=== PATIENT | male | born 1995 | race Caucasian/White ===

== ENCOUNTER 2016-08-08 11:43 | Emergency (ER) | payer OTHER ==
[~2016-08-08] VITALS: Ht 172.7 cm; Wt 75.0 kg
[2016-08-08 11:48] VITALS: TEMP 36.9; Ht 172.7 cm; Wt 75.0 kg
[2016-08-08] MEDS ORDERED: DiphenhydrAMINE HCL 50 MG/ML VIAL IV STA (12:09)
[2016-08-08] MEDS ORDERED: METHYLPREDNISOLONE 125 MG VIAL IV STA (12:09)
[2016-08-08] MEDS ORDERED: SODIUM CHLORIDE 0.9% 1000ML 1,000 ML IV STA (12:09)
[2016-08-08] MEDS ORDERED: FAMOTIDINE IV INJ 20 MG in DEXTROSE 5% 100ML 100 ML IV SCH (12:15)
[2016-08-08] MEDS ORDERED: DIPH1TAB PO (12:22)
[2016-08-08] MEDS ORDERED: PRED50TA PO (16:25)
[2016-08-08] MEDS ORDERED: EPP3/2 IM (16:25)
[2016-08-08 16:35] VITALS: BP 128/78; PULSE 94; O2SAT 98
--- NOTE | 2016-08-08 20:18 | EMERGENCY ROOM VISIT NOTE ---
History Report prepared by Gal: Chalino Heredia Under the Supervision of: Dr. Siva Lopez D.O. First contact with patient: 11:56 Chief Complaint: ALLERGIC REACTION Stated Complaint: ALLERGIC REACTION Nursing Triage Summary: Patient reports waking up to sore/full throat feeling, progressed to hives. Given bendaryl 50 mg PO at [facility], EMS gave patient 0.3 mg of EPI IM. Patient reports changing to [employer] recently, believes tihs is related. History of Present Illness The patient is a 21 year old male who presents to the Emergency Room with complaints of a persistent allergic reaction that started this morning. The patient has had an itchy rash that started this morning, as well as difficulty swallowing. The rash started on his abdomen. He is able to drink fluids. He went to [facility] where he was given an EpiPen at approximately 1130. The patient also had 50 mg Benadryl over the past 1.5 hours. The patient's rash is less itchy but is still present, and he is still having trouble swallowing. Patient denies headache, change in vision, fevers, cough, rhinorrhea, chest pain, nausea, vomiting, diarrhea, pain with urination, and melena. The patient attributes his reaction to a new laundry detergent that he started four days ago. He has worn clothing that wasn't washed with the detergent since then. He denies any recent travel or new medication use. He also denies having any new pets, eating new foods, or using new soaps. The patient has a history of eczema and asthma. Source of History: patient Onset: this morning Position: other (global) Quality: other (allergic reaction) Timing: other (persistent) Modifying Factors (Relieving): other (Benadryl) Associated Symptoms: No SOB, No chest pain, No cough, No diarrhea, No fevers , No headache, No melena, No nausea, No urinary symptoms, No vomiting Review of Systems See HPI for pertinent positives & negatives. A total of 10 systems reviewed and were otherwise negative. Past Medical & Surgical Medical Problems: (1) Asthma (2) Eczema Family History Patient reports no known family medical history. Social History Smoking Status: Never Smoker Occupation Status: [employer] student Current/Historical Medications Scheduled Epinephrine (Epipen 2-Abdoul), 1 PEN IM once Prednisone (Prednisone), 50 MG PO DAILY Scheduled PRN Diphenhydramine Hcl (Benadryl Allergy), 50 MG PO DIRECTED PRN for ALLERGIC REACTION Allergies Coded Allergies: No Known Allergies (Unverified , 08/08/16) Physical Exam Vital Signs Date Time Temp Pulse Resp B/P Pulse Ox O2 Delivery O2 Flow Rate FiO2 08/08/16 16:35 94 12 128/78 98 08/08/16 14:26 105 18 129/75 96 Room Air 08/08/16 13:12 97 16 133/97 08/08/16 11:48 99 Room Air 08/08/16 11:48 36.9 111 20 138/78 99 Room Air Physical Exam GENERAL: Sitting up in bed, alert, well appearing, well nourished, no distress, non-toxic EYE EXAM: normal conjunctiva. OROPHARYNX: no exudate, no erythema, lips, buccal mucosa, and tongue normal and mucous membranes are moist NECK: supple, no nuchal rigidity, no adenopathy, non-tender, no stridor. LUNGS: Clear to auscultation. Normal chest wall mechanics HEART: Tachycardic, no murmurs, S1 normal and S2 normal ABDOMEN: abdomen soft, non-tender, normo-active bowel sounds, no masses, no rebound or guarding. BACK: Back is symmetrical on inspection and there is no deformity, no midline tenderness, no CVA tenderness. SKIN: raised erythematous blanching lesions on the abdomen tracking up to the left axilla, no central clearing, no petechia, does not include any mucosal membranes, palms, soles, or extremities. UPPER EXTREMITIES: upper extremities are grossly normal. LOWER EXTREMITIES: No pitting edema. NEURO EXAM: Normal sensorium, cranial nerves II-XII grossly intact, normal speech, no gross weakness of arms, no gross weakness of legs. Gross sensation intact. Medical Decision & Procedures Medications Administered Medications (Trade) Dose Ordered Sig/Lucius Route Start Time Stop Time Status Last Admin Dose Admin Methylprednisolone Sodium Succinate 125 mg 125 mg NOW STAT IV 08/08/16 12:09 08/08/16 12:10 DC 08/08/16 12:22 125 MG Famotidine/ Dextrose (Pepcid IV Inj/ D5 100ml) 102 ml @ 200 mls/hr NOW IV 08/08/16 12:15 08/08/16 16:58 DC 08/08/16 12:34 200 MLS/HR Diphenhydramine HCl 25 mg 25 mg NOW STAT IV 08/08/16 12:09 08/08/16 12:10 DC 08/08/16 12:21 25 MG Sodium Chloride (Nss 1000ml) 1,000 ml @ 999 mls/hr Q1H1M STAT IV 08/08/16 12:09 08/08/16 13:09 DC 08/08/16 12:22 999 MLS/HR ED Course ED COURSE: Vital signs were reviewed and showed tachycardia. The patients medical record was reviewed The above diagnostic studies were performed and reviewed. ED treatments and interventions as stated above. 1200: The patient was evaluated in room C2a. A complete history and physical examination was performed. 1209: NSS 1000 ml @ 999 mls/hr, Benadryl 25 mg IV, Solu-Medrol 125 mg IV. 1215: Famotidine 20 mg / dextrose 102 ml @ 200 mls/hr. 1630: Upon reevaluation, the patient is feeling better.I discussed my findings with the patient and he understands and agrees with the treatment plan. Based on the patients age, coexisting illnesses, exam and lab findings the decision to treat as an outpatient was made. The patient remained stable while under my care. The patient appeared well at the time of discharge. Medical Decision Differential diagnosis: Etiologies such as allergic reaction, anaphylaxis, urticaria, Irvin-Fernando syndrome, toxic epidermal necrolysis, erythema multiforme, cellulitis, as well as others were entertained. Patient is a 21-year-old male who presents the ER with hives following receiving epinephrine IM. He presented to [facility] and receives IM epinephrine. He had previous intake and Benadryl. He notes that he woke up this morning and felt like swelling in his throat has slight trouble breathing. He then noticed rash on his abdomen which was worsening. He was transferred via ALS to the ER. Upon arrival I gave him Benadryl and steroids. After Benadryl his symptoms completely resolved. Patient has no other complaints at this time. Patient was observed for 4 hours following IM epinephrine. He was discharged with a dose of epinephrine at his baseline along with steroids. Uncertain of the true etiology of this reaction although he does believe is secondary to the detergent. I favor this is unlikely since this is used on Thursday and he had no symptoms still today. Discussed with Pt concerning signs and symptoms to watch out for. Pt was instructed to follow up with their PCP and discussed with the patient their option to return to the ED at anytime for persistent or worsening symptoms. The appropriate anticipatory guidance and out-patient management, including indications for return to the emergency department, were explained at length to the patient and understood. Impression Primary Impression: Allergic reaction Scribe Attestation The scribe's documentation has been prepared under my direction and personally reviewed by me in its entirety. I confirm that the note above accurately reflects all work, treatment, procedures, and medical decision making performed by me. Departure Information Dispostion Home / Self-Care Prescriptions Epinephrine (EPIPEN 2-ABDOUL) 0.3 Mg Inj 1 PEN IM once for trouble breathing, #1 Prov: Siva Lopez, DO 08/08/16 Prednisone (Prednisone) 50 Mg Tab 50 MG PO DAILY for 1 Day, #1 TAB Prov: Siva Lopez, 08/08/16 Forms HOME CARE DOCUMENTATION FORM, IMPORTANT VISIT INFORMATION Patient Instructions ED Allergic Reaction General Other, First Aid Allergic React, My [facility] Additional Instructions Please follow up with your primary care doctor or if you are a student [facility] services with in the next 24 hours. Any worsening of your symptoms, please return to the ED immediately. This includes trouble breathing , trouble swallowing, or any other concerning signs or symptoms from your stand point. If the rash returns please take 50 mg of Benadryl every 6 hours as needed. Please take one tablet prednisone tomorrow. Please use the EpiPen as needed if you ever have swelling of your airway/throat or trouble breathing. Problem Qualifiers Primary Impression: Allergic reaction Encounter type: initial encounter Qualified Codes: T78.40XA - Allergy, unspecified, initial encounter
== END 2016-08-08 16:38 | disposition home or self-care (01) ==
LOC: EDBD 11:43 → C.EDC 11:45
DX: T78.40XA Allergy, unspecified, initial encounter (principal); X58.XXXA Exposure to other specified factors, initial encounter; J45.909 Unspecified asthma, uncomplicated; L30.9 Dermatitis, unspecified

== ENCOUNTER → 2017-07-09 | Outpatient (CLI) | payer OTHER ==
[~2017-07-09] MED LIST: DIPH1TAB87 PO; EPP3/2 IM
--- NOTE | 2017-07-09 09:41 | DIAGNOSTIC IMAGING REPORT ---
L WRIST W/NAVICULAR MIN 3 VIEWS CLINICAL HISTORY: LEFT WRIST FX trauma. Pain. COMPARISON: None. DISCUSSION: Nondisplaced transverse fracture mid navicular. Bone alignment is anatomic. No evidence of dislocation. All remaining osseous structures are unremarkable. There is no evidence for soft tissue swelling. IMPRESSION: Nondisplaced transverse fracture mid navicular. The above report was generated using voice recognition software. It may contain grammatical, syntax or spelling errors. Electronically signed by: Remigio Leos M.D. 07/09/2017 9:39 AM Dictated Date/Time: 07/09/2017 9:38 AM
== END | disposition home or self-care (01) ==
LOC: C.RDSM 07:00
PROVIDERS: ATTEND Family Medicine
DX: M25.532 Pain in left wrist (principal)

== ENCOUNTER → 2017-09-01 | Outpatient (CLI) | payer OTHER ==
--- NOTE | 2017-09-01 13:11 | DIAGNOSTIC IMAGING REPORT ---
LEFT WRIST 4 VIEWS HISTORY: LEFT WRIST FRACTURE COMPARISON: None. FINDINGS: Slight progression of the bony bridging at the scaphoid waist fracture. This suggests interval healing. No acute fractures identified within the left wrist. Mild dorsal soft tissue swelling is again noted. Soft tissues are unremarkable. No radiopaque foreign bodies. IMPRESSION: Slight progression of the bony bridging at the nondisplaced scaphoid waist fracture consistent with interval healing. Electronically signed by: Eduardo López M.D. 09/01/2017 1:10 PM Dictated Date/Time: 09/01/2017 1:03 PM
== END | disposition home or self-care (01) ==
LOC: C.RDSM 14:43
PROVIDERS: ATTEND Family Medicine
DX: M25.532 Pain in left wrist (principal)

== ENCOUNTER 2017-10-15 15:56 | Emergency (ER) | payer OTHER ==
[~2017-10-15] VITALS: Ht 172.7 cm; Wt 69.4 kg
[2017-10-15 16:05] VITALS: TEMP 36.8; Ht 172.7 cm; Wt 69.4 kg
[2017-10-15 17:34] LABS: BASO % 0.1 %; BASO ABS # 0.01 K/uL (0-0.2); EOS % 0.3 %; EOS ABS # 0.03 K/uL (0-0.5); HEMATOCRIT 45.7 % (42-52); IG# 0.01 K/uL (0.00-0.02); LYMPH % 21.4 %; LYMPH ABS # 1.99 K/uL (1.2-3.4); MEAN CELL VOLUME 86.4 fL (80-100); MEAN CORPUSCULAR HEMOGLOBIN 32.1 pg (25-34); MEAN CORPUSCULAR HGB CONC 37.2 g/dl (32-36); MEAN PLATELET VOLUME 9.1 fL (7.4-10.4); MONO % 3.6 %; MONO ABS # 0.33 K/uL (0.11-0.59); NEUT % 74.5 %; NEUT ABS # 6.92 K/uL (1.4-6.5); PLATELET COUNT 221 K/uL (130-400); RED CELL DISTRIBUTION WIDTH SD 37.6 fL (36.4-46.3); WHITE BLOOD COUNT 9.29 K/uL (4.8-10.8)
[2017-10-15] MEDS ORDERED: ONDANSETRON INJ 2 MG/ML 2 ML VIAL IV STA (17:43)
[2017-10-15] MEDS ORDERED: SODIUM CHLORIDE 0.9% 500ML 500 ML IV STA (17:43)
[2017-10-15] MEDS ORDERED: KETOROLAC TROMETHAMINE 30 MG/ML VIAL IV STA (17:43)
--- NOTE | 2017-10-15 17:45 | EMERGENCY ROOM VISIT NOTE ---
History Report prepared by Gal: Gurvinder Amado Under the Supervision of: Dr. Manish Borrero M.D. First contact with patient: 17:30 Chief Complaint: ABDOMINAL PAIN Stated Complaint: ABDOMINAL PAIN Nursing Triage Summary: Patient referred to ED by [facility] to r/o acute appendicitis States he has had abdominal pain and back pain for the last three days Diarrhea for the last two days Denies vomiting, notes nausea and chills History of Present Illness The patient is a 22 year old white male with a past medical history of asthma who presents to the ED with a cc of constant right sided abdominal pain beginning two days ago. He describes the pain as a burning sensation. He rates his discomfort as a 6/10 in severity. The patient states he went to [facility] today where they sent him to the ED for rule out of appendicitis. The patient states his pain is not as severe now as it was earlier today. He reports he took Ibuprofen for his pain without any relief. Positive back pain, alcohol use, nausea, chills. Negative history of kidney stones, urinary symptoms, hematuria, fever, vomiting, injury, penile pain, scrotal pain. The patient states he has not had a bowel movement for a couple of days. Source of History: patient Onset: two days ago Position: abdomen (right) Symptom Intensity: 6/10 Quality: burning Timing: constant Modifying Factors (Relieving): ibuprofen Associated Symptoms: + chills, + nausea, + back pain, No fevers, No vomiting , No urinary symptoms Note: Negative hematuria, injury, penile pain, scrotal pain. Review of Systems See HPI for pertinent positives and negatives. A total of ten systems were reviewed and were otherwise negative. Past Medical & Surgical Medical Problems: (1) Asthma (2) Eczema Family History Patient reports no known family medical history. Social History Smoking Status: Never Smoker Smokeless Tobacco Use: No Alcohol Use: occasionally Housing Status: lives with roommate Occupation Status: [employer] student Current/Historical Medications Scheduled Montelukast Sodium (Singulair), 10 MG PO DAILY Scheduled PRN Ondansetron Hcl (Zofran), 4 MG PO Q8H PRN for Nausea Allergies Coded Allergies: No Known Allergies (Unverified , 10/15/17) Physical Exam Vital Signs Date Time Temp Pulse Resp B/P (MAP) Pulse Ox O2 Delivery O2 Flow Rate FiO2 10/15/17 19:01 91 18 119/66 96 Room Air 10/15/17 17:51 78 18 122/70 99 Room Air 10/15/17 16:05 36.8 85 16 119/74 95 Room Air Physical Exam GENERAL: Awake, alert, well-appearing, NAD HENT: Normocephalic, atraumatic. EYES: Normal conjunctiva. Sclera non-icteric. PERRL. No anisocoria. NECK: Supple. No nuchal rigidity. FROM. RESPIRATORY: CTAB, no rhonchi, wheezing, crackles CARDIAC: RRR, no MRG ABDOMEN: Soft, NTND, BS+, Negative Obturator's, Negative Psoas. MSK: No chest wall TTP, no LE edema, No CVA TTP. NEURO: GCS 15, CN 2-12 intact, moves all 4s on command SKIN: No rash or jaundice noted. Medical Decision & Procedures Laboratory Results 10/15/17 17:10 Red Blood Count 5.29, Mean Corpuscular Volume 86.4, Mean Corpuscular Hemoglobin 32.1, Mean Corpuscular Hemoglobin Concent 37.2, Mean Platelet Volume 9.1, Neutrophils (%) (Auto) 74.5, Lymphocytes (%) (Auto) 21.4, Monocytes (%) (Auto) 3.6, Eosinophils (%) (Auto) 0.3, Basophils (%) (Auto) 0.1, Neutrophils # (Auto) 6.92, Lymphocytes # (Auto) 1.99, Monocytes # (Auto) 0.33, Eosinophils # (Auto) 0.03, Basophils # (Auto) 0.01 10/15/17 17:10 Test 10/15/17 17:10 10/15/17 17:15 White Blood Count 9.29 K/uL (4.8-10.8) Red Blood Count 5.29 M/uL (4.7-6.1) Hemoglobin 17.0 g/dL (14.0-18.0) Hematocrit 45.7 % (42-52) Mean Corpuscular Volume 86.4 fL (80-100) Mean Corpuscular Hemoglobin 32.1 pg (25-34) Mean Corpuscular Hemoglobin Concent 37.2 g/dl (32-36) Platelet Count 221 K/uL (130-400) Mean Platelet Volume 9.1 fL (7.4-10.4) Neutrophils (%) (Auto) 74.5 % Lymphocytes (%) (Auto) 21.4 % Monocytes (%) (Auto) 3.6 % Eosinophils (%) (Auto) 0.3 % Basophils (%) (Auto) 0.1 % Neutrophils # (Auto) 6.92 K/uL (1.4-6.5) Lymphocytes # (Auto) 1.99 K/uL (1.2-3.4) Monocytes # (Auto) 0.33 K/uL (0.11-0.59) Eosinophils # (Auto) 0.03 K/uL (0-0.5) Basophils # (Auto) 0.01 K/uL (0-0.2) RDW Standard Deviation 37.6 fL (36.4-46.3) RDW Coefficient of Variation 12.0 % (11.5-14.5) Immature Granulocyte % (Auto) 0.1 % Immature Granulocyte # (Auto) 0.01 K/uL (0.00-0.02) Anion Gap 4.0 mmol/L (3-11) Est Creatinine Clear Calc Drug Dose 95.8 ml/min Estimated GFR () 101.6 Estimated GFR (Non- 87.7 BUN/Creatinine Ratio 10.7 (10-20) Calcium Level 9.1 mg/dl (8.5-10.1) Total Bilirubin 0.7 mg/dl (0.2-1) Aspartate Amino Transf (AST/SGOT) 18 U/L (15-37) Alanine Aminotransferase (ALT/SGPT) 24 U/L (12-78) Alkaline Phosphatase 88 U/L (45-117) Total Protein 8.2 gm/dl (6.4-8.2) Albumin 4.7 gm/dl (3.4-5.0) Globulin 3.5 gm/dl (2.5-4.0) Albumin/Globulin Ratio 1.4 (0.9-2) Lipase 154 U/L (73-393) Urine Color YELLOW Urine Appearance CLEAR (CLEAR) Urine pH 5.0 (4.5-7.5) Urine Specific Jaffrey 1.020 (1.000-1.030) Urine Protein NEG (NEG) Urine Glucose (UA) NEG (NEG) Urine Ketones NEG (NEG) Urine Occult Blood NEG (NEG) Urine Nitrite NEG (NEG) Urine Bilirubin NEG (NEG) Urine Urobilinogen NEG (NEG) Urine Leukocyte Esterase NEG (NEG) Laboratory results reviewed by me Medications Administered Medications (Trade) Dose Ordered Sig/Lucius Route Start Time Stop Time Status Last Admin Dose Admin Ketorolac Tromethamine (Toradol Inj) 30 mg NOW STAT IV 10/15/17 17:43 10/15/17 17:45 DC 10/15/17 17:48 30 MG Ondansetron HCl (Zofran Inj) 4 mg NOW STAT IV 10/15/17 17:43 10/15/17 17:45 DC 10/15/17 17:48 4 MG Sodium Chloride 500 ml @ 500 mls/hr Q1H STAT IV 10/15/17 17:43 10/15/17 18:42 DC 10/15/17 17:48 500 MLS/HR ED Course 1738: The patient was evaluated in room B12B. A complete history and physical exam was performed. 1856: I reevaluated the patient. Discussed results and discharge instructions: He and his mother verbalized understanding and agreement. The patient is ready for discharge. Medical Decision Nursing notes reviewed. Ancillary studies and prior records reviewed. The patient is a 22 year old white male with a past medical history of asthma who presents to the ED with a cc of constant right sided abdominal pain beginning two days ago. The patient's presentation and history were concerning for etiologies such as appendicitis, diverticulitis, PUD, biliary pathology, UTI, pancreatitis, obstruction, mesenteric ischemia, aortic pathology, infections, inflammatory bowel disease, renal colic, as well as others were entertained. Patient was seen and evaluated the bedside. Patient was referred from [facility] for further evaluation and treatment. The patient has had some abdominal discomfort 2 days. Has been fairly constant in his right side and right abdomen. Apparently per documentation the patient had had positive guarding positive rebound positive right lower quadrant discomfort. On my exam the patient has no right-sided CVA TTP, flank pain, right lower quadrant tenderness, with a negative obturator's, negative psoas. Patient has no guarding or rebound. Patient did have blood work completed along with urinalysis. I discussed with the patient that if things look concerning to talk about obtaining a CT but given the patient's relatively benign exam we decided to hold off. The patient was given medications for symptom control. Patient's blood work returned the patient is a normal white blood cell count. Patient's LFTs and lipase are normal. Patient's urinalysis is Medication Reconcilliation Current Medication List: was personally reviewed by me Blood Pressure Screening Patient's blood pressure: Normal blood pressure Impression Primary Impression: Abdominal pain Scribe Attestation The scribe's documentation has been prepared under my direction and personally reviewed by me in its entirety. I confirm that the note above accurately reflects all work, treatment, procedures, and medical decision making performed by me. Departure Information Dispostion Home / Self-Care Prescriptions Ondansetron Hcl (ZOFRAN) 4 Mg Tab 4 MG PO Q8H Y for Nausea, #12 TAB Prov: Manish Borrero M.D. 10/15/17 Referrals Abilio Burden M.D. (PCP) Patient Instructions Abdominal Pain, My [facility] Additional Instructions Please return to the emergency department if you have worsening or recurrent symptoms not amenable to at-home treatment. Please call for a follow-up appointment with her primary care physician. Please take your medications as prescribed. If you have other concerns and/or complaints please feel free to also call your primary care physician's office or return the ED for further evaluation, management, and treatment. You may take 800 mg Ibuprofen every 6 hours as needed for pain/fever with food unless told by your physician not to take NSAIDs. You may take tylenol 1000 mg every 6 hours as needed for pain/fever unless told by your physician to not take it or have liver problems. You may take motrin and tylenol separately or at the same time. You may apply moist heat, ice, or topical medications like BenGay, Biofreeze, or icy hot. Take your medications as prescribed. You have been examined and treated today on an emergency basis only. This is not a substitute for, or an effort to provide, complete comprehensive medical care. It is impossible to recognize and treat all injuries or illnesses in a single emergency department visit. It is therefore important that you follow up closely with [facility], your PCP, and/or your specialist(s). Call as soon as possible for an appointment. Thank you for your time and consideration. I look forward to speaking with you again soon. Please don't hesitate to call us if you have any questions. Problem Qualifiers Primary Impression: Abdominal pain Abdominal location: generalized Qualified Codes: R10.84 - Generalized abdominal pain
[2017-10-15 17:52] LABS: ALBUMIN 4.7 gm/dl (3.4-5.0); CALCIUM 9.1 mg/dl (8.5-10.1); CREATININE 1.18 mg/dl (0.60-1.40); POTASSIUM 3.7 mmol/L (3.5-5.1)
[2017-10-15 17:55] LABS: TOTAL PROTEIN 8.2 gm/dl (6.4-8.2)
[2017-10-15] MEDS ORDERED: MONT1TAB3 PO (18:12)
[2017-10-15] MEDS ORDERED: ONDA4TAB46 PO (18:29)
[2017-10-15 19:01] VITALS: BP 119/66; PULSE 91; O2SAT 96
== END 2017-10-15 19:10 | disposition home or self-care (01) ==
LOC: C.EDB 15:58
DX: R10.31 Right lower quadrant pain (principal); M54.9 Dorsalgia, unspecified; R11.0 Nausea; R68.83 Chills (without fever); J45.909 Unspecified asthma, uncomplicated